=== PATIENT | male | born 1995 | race Caucasian/White ===

== ENCOUNTER 2018-10-10 15:44 | Emergency (ER) | payer OTHER ==
--- NOTE | 2018-10-10 16:19 | NUR ---
Call patient x2 no answer.
--- NOTE | 2018-10-10 17:38 | NUR ---
Called a total of 3 seperate times. [id number]
== END 2018-10-10 18:23 | disposition left against medical advice (07) ==
LOC: ER 15:44
DX: Z53.21 Procedure and treatment not carried out due to patient leaving prior to being seen by health care provider (principal)